=== PATIENT | male | born 1950 | race Hispanic/Latino ===

== ENCOUNTER 2018-09-27 20:15 | Emergency (ER) | payer MEDICARE, MEDICAID ==
[~2018-09-27] VITALS: Ht 170.2 cm; Wt 72.7 kg
[~2018-09-27 20:15] MED LIST: ATENOLOL25 MG PO; LISINOP/HCTZ1 TA1 OR; NO HOME MEDS; OMEPRAZOLE20 MG PO; PLAVIX75 MG PO; PRAVACHOL20 MG OR; SIMVASTATIN40 MG PO
[2018-09-27] MEDS ORDERED: ATORVASTATIN CA40 MG PO (20:59)
[2018-09-27] MEDS ORDERED: ATENOLOL50 MG PO (20:59)
[2018-09-27 21:20] VITALS: BP 170/81
== END 2018-09-27 21:20 | disposition home or self-care (01) ==
LOC: ED 20:15
PROC: 0HQEXZZ Repair Left Lower Arm Skin, External Approach (ICD-10-PCS; principal; 2018-09-27)
DX: S61.512A Laceration without foreign body of left wrist, initial encounter (principal); W26.0XXA Contact with knife, initial encounter; Y93.H9 Activity, other involving exterior property and land maintenance, building and construction; Y92.009 Unspecified place in unspecified non-institutional (private) residence as the place of occurrence of the external cause

== ENCOUNTER 2019-06-19 15:59 | Observation (INO) | payer MEDICARE, MEDICAID ==
[~2019-06-19] VITALS: Ht 170.2 cm; Wt 74.0 kg
[~2019-06-19 15:59] MED LIST changes: +ASPIRIN81 MG PO; +ATENOLOL50 MG PO; +ATORVASTATIN CA40 MG PO
[2019-06-19 16:21] LABS: HEMATOCRIT 45.9 % (39.0-50.0); HEMOGLOBIN 15.7 g/dl (14.0-18.0); IMMATURE GRANULOCYTES 0.2 % (0.0-5.0); MEAN CELL VOLUME 89.3 fL CALC (80.0-100.0); MEAN CORPUSCULAR HGB 30.5 pG CALC (26.0-32.0); MEAN CORPUSCULAR HGB CONC 34.2 g/L CALC (32.0-36.0); NEUT# 6.17 thou/uL (1.82-7.42); RED BLOOD COUNT 5.14 mill/uL (4.70-6.10); RED CELL DISTRI WIDTH 13.4 % (11.5-15.5)
[2019-06-19 16:40] LABS: ALBUMIN 4.3 g/dL (3.2-5.0); ALKALINE PHOSPHATASE 144 u/l (38-126); ANION GAP 10 (6-22 (CALC)); BUN 13 mg/dL (8-23); BUN/CREATININE RATIO 16 (12-20 (CALC)); CARBON DIOXIDE 25 mmol/l (22-30); CHLORIDE 105 mmol/l (95-108); CREATININE 0.8 mg/dL (0.7-1.3); GFR > 60 ML/MIN (>=60 (CALC)); GFR FOR AFR.AMER. > 60 ML/MIN (>=60 (CALC)); LIPASE 55 u/l (23-300); POTASSIUM 4.4 mmol/l (3.5-5.1); SGOT/AST 29 u/l (19-48); SODIUM 136 mmol/l (137-146); TOTAL PROTEIN 7.5 g/dL (6.3-8.2)
[2019-06-19 16:41] LABS: PROTHROMBIN TIME 10.5 SECONDS (9.0-12.5)
[2019-06-19 16:46] LABS: BILIRUBIN, TOTAL 0.8 mg/dL (0.0-1.4)
[2019-06-19 20:27] VITALS: BP 189/72
[2019-06-19 21:57] VITALS: BP 138/60
[2019-06-20 00:16] VITALS: BP 131/63
[2019-06-20 04:26] VITALS: BP 128/64
[2019-06-20 07:40] VITALS: BP 115/55
[2019-06-20 11:09] VITALS: BP 122/61
== END 2019-06-20 15:55 | disposition home or self-care (01) ==
LOC: ED 15:59 → ED-I 18:36 → ED 18:52 → MS2 18:53
PROVIDERS: ADMIT Internal Medicine; ATTEND Internal Medicine
PROC: 3E02340 Introduction of Influenza Vaccine into Muscle, Percutaneous Approach (ICD-10-PCS; principal; 2019-06-20)
PROC: 3E0234Z Introduction of Serum, Toxoid and Vaccine into Muscle, Percutaneous Approach (ICD-10-PCS; 2019-06-20)
DX: R07.9 Chest pain, unspecified (principal); R00.1 Bradycardia, unspecified; I10 Essential (primary) hypertension; I16.0 Hypertensive urgency; I25.10 Atherosclerotic heart disease of native coronary artery without angina pectoris; E78.5 Hyperlipidemia, unspecified; F17.210 Nicotine dependence, cigarettes, uncomplicated; Z95.5 Presence of coronary angioplasty implant and graft; Z23 Encounter for immunization
CPT/HCPCS: G0009; G0378; J1650; Q9967; S0164

== ENCOUNTER 2021-08-31 14:39 | Emergency (ER) | payer MEDICARE ==
[~2021-08-31] VITALS: Ht 170.2 cm; Wt 81.0 kg
[2021-08-31] VITALS (9 sets, daily range): BP systolic 121–173; BP diastolic 57–104
[~2021-08-31 14:39] MED LIST changes: +ISOSORBIDE DINI30 MG PO; +LIPITOR40 M1 PO
[2021-08-31] MEDS ORDERED: TAMSULOSIN HCL0.4 MG PO (15:09)
[2021-08-31 15:17] LABS: HEMATOCRIT 45.9 % (39.0-50.0); HEMOGLOBIN 15.6 g/dl (14.0-18.0); IMMATURE GRANULOCYTES 0.2 % (0.0-5.0); MEAN CELL VOLUME 89.1 fL CALC (80.0-100.0); MEAN CORPUSCULAR HGB 30.3 pG CALC (26.0-32.0); NEUT# 4.91 thou/uL (1.82-7.42); RED BLOOD COUNT 5.15 mill/uL (4.70-6.10); RED CELL DISTRI WIDTH 13.7 % (11.5-15.5)
[2021-08-31 15:36] LABS: ALBUMIN 4.1 g/dL (3.2-5.0); ALKALINE PHOSPHATASE 150 u/l (38-126); ANION GAP 11 (6-22 (CALC)); BILIRUBIN, TOTAL 0.6 mg/dL (0.0-1.4); BUN 21 mg/dL (8-23); BUN/CREATININE RATIO 18 (12-20 (CALC)); CARBON DIOXIDE 25 mmol/l (22-30); CHLORIDE 107 mmol/l (95-108); CREATININE 1.2 mg/dL (0.7-1.3); GFR 60 ML/MIN (>=60 (CALC)); GFR FOR AFR.AMER. > 60 ML/MIN (>=60 (CALC)); POTASSIUM 3.9 mmol/l (3.5-5.1); SGOT/AST 40 u/l (19-48); SODIUM 139 mmol/l (137-146); TOTAL PROTEIN 7.3 g/dL (6.3-8.2)
[2021-08-31] MEDS ORDERED: MECLIZINE25 MG PO ×2 (16:19→16:34)
== END 2021-08-31 16:36 | disposition home or self-care (01) ==
LOC: ED 14:39
PROVIDERS: Family Medicine
DX: R42 Dizziness and giddiness (principal); I10 Essential (primary) hypertension; F17.200 Nicotine dependence, unspecified, uncomplicated; Z95.5 Presence of coronary angioplasty implant and graft

== ENCOUNTER 2022-01-27 18:10 | Emergency (ER) | payer MEDICARE ==
[~2022-01-27] VITALS: Ht 170.2 cm; Wt 79.0 kg
[~2022-01-27 18:10] MED LIST changes: +MECLIZINE25 MG PO; +TAMSULOSIN HCL0.4 MG PO
[2022-01-27] MEDS ORDERED: ZPAK PO (18:51)
[2022-01-27 20:30] VITALS: BP 132/78
== END 2022-01-27 20:30 | disposition home or self-care (01) ==
LOC: ED 18:10
DX: J06.9 Acute upper respiratory infection, unspecified (principal); I10 Essential (primary) hypertension; F17.200 Nicotine dependence, unspecified, uncomplicated

== ENCOUNTER 2022-06-21 16:22 | Emergency (ER) | payer MEDICARE ==
[~2022-06-21] VITALS: Ht 170.2 cm; Wt 80.0 kg
[~2022-06-21 16:22] MED LIST changes: +ZPAK PO
[2022-06-21 16:30] VITALS: BP 146/69
[2022-06-21 17:58] LABS: BASO% 0.6 % (0-3); EOS% 1.3 % (0-8); HEMATOCRIT 46.2 % (39.0-50.0); HEMOGLOBIN 15.6 g/dl (14.0-18.0); IMMATURE GRANULOCYTES 0.2 % (0.0-5.0); LYMPH% 28.3 % (15-41); MEAN CELL VOLUME 88.8 fL CALC (80.0-100.0); MEAN CORPUSCULAR HGB CONC 33.8 g/dL CAL (32.0-36.0); MONO% 9.1 % (2-13); NEUT# 3.77 thou/uL (1.82-7.42); NEUT% 60.5 % (42-76); RED BLOOD COUNT 5.2 mill/uL (4.70-6.10); RED CELL DISTRI WIDTH 13.3 % (11.5-15.5)
[2022-06-21 18:11] LABS: ALBUMIN 4.3 g/dL (3.2-5.0); BILIRUBIN, TOTAL 0.6 mg/dL (0.2-1.3); CREATININE 1.5 mg/dL (0.7-1.3); POTASSIUM 3.7 mmol/l (3.5-5.1); TOTAL PROTEIN 7.7 g/dL (6.3-8.2)
[2022-06-21] MEDS ORDERED: PROTONIX40 M2 PO (21:29)
[2022-06-21 21:35] VITALS: BP 146/69
[2022-06-23] MEDS ORDERED: PROTONIX40 M2 PO (10:32)
== END 2022-06-21 21:40 | disposition home or self-care (01) ==
LOC: ED 16:22
PROVIDERS: Emergency Medicine
DX: K29.70 Gastritis, unspecified, without bleeding (principal); R00.1 Bradycardia, unspecified; I10 Essential (primary) hypertension; F17.210 Nicotine dependence, cigarettes, uncomplicated; Z20.822 Contact with and (suspected) exposure to COVID-19